=== PATIENT | male | born 1945 | race Caucasian/White ===

== ENCOUNTER 2021-02-20 11:32 | Day surgery (SDC) | payer MEDICARE, BC ==
[2021-02-18 16:02] LABS: COVID AG,FIA SOURCE NASOPHARYNGEAL
[~2021-02-20] VITALS: Ht 172.7 cm; Wt 60.0 kg
[~2021-02-20 11:32] MED LIST: ATOR10TA69 PO; ONDA4TAB10 SL; SODIUM CHLORIDE 0.9% 1,000 ML ONE; TRAM50TA4 PO; TRIA0.2573 PO
[2021-02-20] MEDS ORDERED: GLYCOPYRROLATE 0.2 MG/ML VIAL IM ONE (12:00)
[2021-02-20] MEDS ORDERED: PROPOFOL 1% 20 ML VIAL IVP ONE (12:00)
[2021-02-20] MEDS ORDERED: LIDOCAINE/PF 2% 5 ML VIAL IM ONE (12:00)
[2021-02-20] MEDS ORDERED: SODIUM CHLORIDE 0.9% 1,000 ML IV ONE (13:00)
== END 2021-02-20 14:40 | disposition home or self-care (01) ==
LOC: SURGERY 11:32
PROVIDERS: ATTEND Internal Medicine Gastroenterology
DX: R13.10 Dysphagia, unspecified (principal); K22.2 Esophageal obstruction; K22.8 Other specified diseases of esophagus; E78.5 Hyperlipidemia, unspecified; K44.9 Diaphragmatic hernia without obstruction or gangrene; K22.70 Barrett's esophagus without dysplasia; Z86.010 Personal history of colon polyps; Z88.1 Allergy status to other antibiotic agents; Z88.8 Allergy status to other drugs, medicaments and biological substances; Z79.899 Other long term (current) drug therapy; Z72.89 Other problems related to lifestyle; Z98.890 Other specified postprocedural states
CPT/HCPCS: 43249; 87426; C9803; J2704; J3490 ×2; J7030